=== PATIENT | male | born 1980 | race Caucasian/White ===

== ENCOUNTER 2017-12-15 11:51 | Emergency (ER) | payer OTHER ==
[2017-12-15 13:05] VITALS: BP 144/102
--- NOTE | 2017-12-15 13:59 | UC ---
Ear Complaint HPI - HPI Summary HPI Summary: 37M presents with right ear pain. He states he has been having intermittent sinus congestion for past three weeks. The sinus congestion has not changed at all. He started to notice pain in his ear last night so he tired washing it out with peroxide. He states this morning he can not hear out of his ear. He admits to mild cough. He denies any fever. He denies any history of ear infections. - History of Current Complaint Chief Complaint: UCEar Stated Complaint: EAR PAIN Time Seen by Provider: 12/15/17 13:01 Pain Intensity: 3 - Allergies/Home Medications Allergies/Adverse Reactions: Allergies Allergy/AdvReac Type Severity Reaction Status Date / Time No Known Allergies Allergy Verified 12/15/17 12:59 PMH/Surg Hx/FS Hx/Imm Hx Endocrine History: Other Other Endocrine History: no DM Respiratory History: Other Other Respiratory History: no asthma - Surgical History Surgical History: Yes Surgery Procedure, Year, and Place: hernia - Family History Known Family History: Positive: Hypertension - Social History Alcohol Use: None Substance Use Type: None Smoking Status (MU): Never Smoked Tobacco - Immunization History Most Recent Tetanus Shot: 1990 Review of Systems Constitutional: Negative ENT: Ear Ache, Sinus Congestion Respiratory: Negative Cardiovascular: Negative All Other Systems Reviewed And Are Negative: Yes Physical Exam Triage Information Reviewed: Yes Appearance: Well-Appearing Vital Signs: Initial Vital Signs Temp 98.5 F 12/15/17 12:59 Pulse 77 12/15/17 12:59 Resp 16 12/15/17 12:59 BP 144/102 12/15/17 12:59 Pulse Ox 96 12/15/17 12:59 Vital Signs Reviewed: Yes Eyes: Positive: Conjunctiva Clear ENT: Positive: Pharynx normal, TMs normal, Other - right ear canal edematous and erythematous Respiratory: Positive: Lungs clear, Normal breath sounds Cardiovascular: Positive: RRR Abdomen Description: Positive: Nontender, Soft Bowel Sounds: Positive: Present Musculoskeletal Exam: Normal Neurological Exam: Normal Psychological Exam: Normal Skin Exam: Normal Ear Complaint Course/Dx - Course Course Of Treatment: 37M presents with right ear pain. He states he has been having intermittent sinus congestion for past three weeks. The sinus congestion has not changed at all. He started to notice pain in his ear last night so he tired washing it out with peroxide. He states this morning he can not hear out of his ear. He admits to mild cough. He denies any fever. He denies any history of ear infections. on exam right TM edematous and erythematous. has wax in ear. after wax cleared TM normal. will treat with ciprodex. will have est care with primary to follow up about blood pressure. patient understand and agrees with plan. - Differential Dx/Diagnosis Differential Diagnosis/HQI/PQRI: Otitis Externa, Otitis Media, URI Provider Diagnoses: otitis externa right, elevated blood pressure Discharge - Discharge Plan Condition: Good Disposition: HOME Prescriptions: Ciproflox/Dexameth OTIC.SUSP* [Ciprodex OTIC.SUSP*] 4 drop .SEE ORDER BID #1 btl Patient Education Materials: Otitis Externa (ED) Referrals: [facility] [Outside] Additional Instructions: Use antibiotic 4 drops twice a day for 7 days can use otc sinus spray such as nasacort for nasal congestion once a day as needed Establish care with primary, blood pressure is elevated at this visit so will need follow up Return to ED if develop any new or worsening symptoms
== END 2017-12-15 14:43 | disposition home or self-care (01) ==
LOC: UCCORT 11:51
DX: H60.91 Unspecified otitis externa, right ear (principal); R03.0 Elevated blood-pressure reading, without diagnosis of hypertension
CPT/HCPCS: 99203; G0463